=== PATIENT | male | born 1970 | race African-American/Black ===

== ENCOUNTER 2016-08-22 10:02 | Emergency (ER) | payer OTHER ==
[~2016-08-22] VITALS: Ht 185.4 cm; Wt 104.3 kg
--- NOTE | 2016-08-22 10:36 | ED GENERAL ADULT ---
History of Present Illness General Chief Complaint: Nausea, Vomiting, Diarrhea Stated Complaint: MIGRANE HEADACHE, NAUSEA VOMITING Source: patient Exam Limitations: no limitations Vital Signs & Intake/Output Vital Signs & Intake/Output Vital Signs Date Time Temp Pulse Resp B/P Pulse O2 O2 Flow FiO2 Ox Delivery Rate 08/22 1214 85 126/84 08/22 1016 97.6 60 18 123/60 99 Room Air Allergies Coded Allergies: No Known Allergies (08/22/16) Reconcile Medications Ibuprofen 800 MG TABLET 1 TAB PO Q8 PRN PAIN Metoclopramide HCl (Reglan) 10 MG TABLET 1 TAB PO Q6 PRN NAUSEA/HEADACHE Triage Note: BIBA FROM [facility], PT WAS ON HIS WAY TO WORK, WOKE UP THIS MORNING WITH A MIGRAINE HEADACHE, PULLED OVER TO VOMIT. Triage Nurses Notes Reviewed? yes HPI: Patient is a 46 year old male presents complaining of headache, body aches, chills. Symptoms onset this morning while patient was driving. vomited numerous times yellow emesis. Headache feels similar to previous migraine, currently severe with associated photophobia. Myalgias are moderate to severe. Patient has not taken any medication for his symptoms today. Positive sick contacts at home with the flu. Patient did not receive an influenza vaccination this flu season. Past History Travel History Traveled to [place] past 21 day No Medical History Any Pertinent Medical History? see below for history Neurological: migraine EENT: NONE Cardiovascular: NONE Respiratory: NONE Gastrointestinal: NONE Hepatic: NONE Renal: NONE Musculoskeletal: NONE Psychiatric: NONE Endocrine: NONE Blood Disorders: NONE Cancer(s): NONE Surgical History Surgical History: non-contributory Psychosocial History What is your primary language Ma[place] Tobacco Use: Never used ETOH Use: denies use, occasional use Family History Hx Contributory? No Review of Systems Review of Systems Constitutional: Reports: chills. Denies: fever. EENTM: Reports: no symptoms. Respiratory: Denies: cough, short of breath. Cardiovascular: Denies: chest pain. GI: Reports: nausea, vomiting. Denies: abdominal pain. Genitourinary: Reports: no symptoms. Musculoskeletal: Reports: muscle pain. Skin: Reports: no symptoms. Neurological/Psychological: Reports: headache. Hematologic/Endocrine: Reports: no symptoms. Immunologic/Allergic: Reports: no symptoms. Physical Exam Physical Exam General Appearance: alert, awake Head: atraumatic, normal appearance Eyes: Bilateral: normal appearance, PERRL, EOMI. Ears, Nose, Throat: normal pharynx, normal ENT inspection, hearing grossly normal Neck: normal inspection, supple, full range of motion Respiratory: normal breath sounds, chest non-tender, no respiratory distress, lungs clear Cardiovascular: regular rate/rhythm Gastrointestinal: soft, non-tender Back: normal inspection, normal range of motion Extremities: normal inspection, normal capillary refill, normal range of motion Neurologic/Psych: no motor/sensory deficits, awake, alert, oriented x 3, normal gait, normal mood/affect, trapper animal II-XII nml as tested Skin: intact, normal color, warm/dry Lymphatic: no anterior cervical minda Core Measures ACS in differential dx? No CVA/TIA Diagnosis: No Severe Sepsis Present: No Septic Shock Present: No Progress Differential Diagnoses I considered the following diagnoses in my evaluation of the patient: Migraine, influenza, viral syndrome, meningitis Plan of Care: Orders Procedure Date/time Status RAPID VIRAL INFLUENZA A 08/22 1040 Complete Patient feels significant improved after Toradol, Reglan, IV fluids. Patient nontoxic appearing, no meningeal signs, appears stable for discharge. (COLLEEN LACEY,VICTOR M) Initial ED EKG: none Departure Departure Time of Disposition: 1208 Disposition: HOME OR SELF CARE Condition: Stable Clinical Impression Primary Impression: Migraine headache Secondary Impressions: Viral syndrome Referrals: ABIGAIL ENRIQUEZ,VANIA Hopkins Additional Instructions: Drink plenty of fluids and rest. Follow-up with her primary doctor if no improvement by Thursday. Return to emergency department if unable to stay hydrated or worsening of symptoms. Departure Forms: Customer Survey General Discharge Information Prescriptions: Current Visit Scripts Metoclopramide HCl (Reglan) 1 TAB PO Q6 PRN NAUSEA/HEADACHE #12 TAB Ibuprofen 1 TAB PO Q8 PRN PAIN #20 TAB Critical Care Note Critical Care Note Critical Care Time: non-applicable
[2016-08-22] MEDS ORDERED: IBUPROFEN800 M1 PO (12:10)
[2016-08-22] MEDS ORDERED: REGLAN10 M1 PO (12:10)
[2016-08-22 12:14] VITALS: BP 126/84
== END 2016-08-22 12:14 ==
LOC: ERH 10:02
DX: G43.909 Migraine, unspecified, not intractable, without status migrainosus (principal); B34.9 Viral infection, unspecified
CPT/HCPCS: 87804; 87804-59; 96374; 96375; J1885; J2765